=== PATIENT | male | born 1970 ===

== ENCOUNTER 2016-10-04 22:20 | Emergency (ER) | payer SELFPAY ==
[2016-10-04 22:52] VITALS: RESP 20
--- NOTE | 2016-10-04 23:04 | C.PDOC ---
History Of Present Illness Patient presents to ED with complaints of bilateral feet pain in relation to walking all day. Patient states he "needs a place to rest" because he is homeless. Time Seen by Provider: 10/04/16 23:04 Chief Complaint (Nursing): Lower Extremity Problem/Injury History Per: Patient History/Exam Limitations: no limitations Onset/Duration Of Symptoms: Days (one day) Current Symptoms Are (Timing): Still Present Severity: Mild Recent travel outside of the [place]: No Additional History Per: Patient - Ankle/Foot Description Of Injury: Other (Walking a lot) Past Medical History Reviewed: Historical Data, Nursing Documentation, Vital Signs Vital Signs: Last Vital Signs Temp 97.8 F 10/04/16 22:43 Pulse 96 H 10/04/16 22:43 Resp 20 10/04/16 22:43 BP 107/71 10/04/16 22:43 Pulse Ox 95 10/05/16 01:34 - Medical History PMH: Diabetes, HTN, Kidney Stones Family History: States: No Known Family Hx - Social History Hx Tobacco Use: No Hx Alcohol Use: Yes Hx Substance Use: No - Immunization History Hx Tetanus Toxoid Vaccination: Yes Hx Influenza Vaccination: Yes Hx Pneumococcal Vaccination: No Review Of Systems Constitutional: Negative for: Fever, Chills Musculoskeletal: Positive for: Foot Pain (Bilateral feet pain). Negative for: Leg Pain Skin: Negative for: Rash, Lesions Physical Exam - Physical Exam Appears: Non-toxic Skin: Warm Eye(s): bilateral: Normal Inspection Oral Mucosa: Moist Neck: Supple Extremity: Capillary Refill (< 2 seconds), Other (Some callusus on feet) Neurological/Psych: Oriented x3, Normal Speech, Normal Cognition Gait: Steady ED Course And Treatment O2 Sat by Pulse Oximetry: 95 (Room air ) Pulse Ox Interpretation: Normal Reevaluation Time: 06:00 Reassessment Condition: Improved Disposition Counseled Patient/Family Regarding: Studies Performed, Diagnosis, Need For Followup - Disposition Referrals: [facility] [Outside] Disposition: HOME/ ROUTINE Disposition Time: 23:04 Condition: FAIR Instructions: Arthralgia (ED) - Clinical Impression Clinical Impression: Leg pain - 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 - Scribe Statement The provider has reviewed the documentation as recorded by the Margaretibpriscilla Cole All medical record entries made by the Scribe were at my direction and personally dictated by me. I have reviewed the chart and agree that the record accurately reflects my personal performance of the history, physical exam, medical decision making, and the department course for this patient. I have also personally directed, reviewed, and agree with the discharge instructions and disposition.
[2016-10-05 06:51] VITALS: BP 137/80; PULSE 80; TEMP 98; O2SAT 97
== END 2016-10-05 06:46 | disposition home or self-care (01) ==
LOC: C.ER 22:20
DX: M79.672 Pain in left foot (principal); M79.671 Pain in right foot; Z59.0 Homelessness

== ENCOUNTER 2016-10-05 18:56 | Observation (INO) | payer SELFPAY ==
[2016-10-05 19:04] VITALS: RESP 20; O2SAT 97
[2016-10-05] MEDS ORDERED: Naloxone 0.4 mg/ml Inj (Adult) IV ONE (19:58)
--- NOTE | 2016-10-05 19:58 | C.PDOC ---
History Of Present Illness 46 y/o male brought to ED by EMS after being found "drunk on street". Patient has alcohol odor in breath. Patient denies fever, chills, nausea/vomiting and diarrhea. No further complaints at this time. Time Seen by Provider: 10/05/16 19:36 Chief Complaint (Nursing): Substance Abuse History Per: Patient History/Exam Limitations: no limitations Onset/Duration Of Symptoms: Days Current Symptoms Are (Timing): Still Present Modifying Factor(s): Alcohol Severity: Mild Recent travel outside of the [place]: No Additional History Per: EMS Past Medical History Reviewed: Historical Data, Nursing Documentation, Vital Signs Vital Signs: Last Vital Signs Temp 97.4 F L 10/05/16 19:04 Pulse 89 10/05/16 19:04 Resp 20 10/05/16 19:04 BP 133/74 10/05/16 19:04 Pulse Ox 97 10/06/16 00:21 - Medical History PMH: Diabetes, HTN, Kidney Stones Family History: States: Unknown Family Hx - Social History Hx Tobacco Use: No Hx Alcohol Use: Yes Hx Substance Use: No - Immunization History Hx Tetanus Toxoid Vaccination: Yes Hx Influenza Vaccination: Yes Hx Pneumococcal Vaccination: No Review Of Systems Except As Marked, All Systems Reviewed And Found Negative. Constitutional: Negative for: Fever, Chills Gastrointestinal: Negative for: Nausea, Vomiting, Diarrhea Neurological: Negative for: Change in Speech Physical Exam - Physical Exam Appears: Non-toxic Skin: Warm, Dry Head: Atraumatic, Normacephalic Eye(s): bilateral: Normal Inspection Cardiovascular: Rhythm Regular Respiratory: Normal Breath Sounds, No Rales, No Rhonchi, No Wheezing Gastrointestinal/Abdominal: No Tenderness, No Guarding, No Rebound Neurological/Psych: Oriented x3, Normal Speech, Normal Cognition ED Course And Treatment - Laboratory Results Result Diagrams: 10/05/16 20:06 10/05/16 20:06 Lab Interpretation: Abnormal (etoh 346 H, tox + cocaine, opiates) O2 Sat by Pulse Oximetry: 97 Reevaluation Time: 00:42 Reassessment Condition: Improved Medical Decision Making Medical Decision Making: Plan: labs, Narcan homeless, etoh and heroine and cocaine abuse Disposition Doctor Will See Patient In The: Office - Disposition Disposition Time: 01:00 Condition: GOOD - Clinical Impression Clinical Impression: Alcohol intoxication, Heroin abuse - 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 - Scribe Statement The provider has reviewed the documentation as recorded by the Margaretibpriscilla Cole All medical record entries made by the Nasim were at my direction and personally dictated by me. I have reviewed the chart and agree that the record accurately reflects my personal performance of the history, physical exam, medical decision making, and the department course for this patient. I have also personally directed, reviewed, and agree with the discharge instructions and disposition. Physician Patient Turnover Patient Signed Over To: Thierno Lund Handoff Comments: dispo in AM when sober
[2016-10-05 20:12] LABS: BASO % 0.5 % (0.0-2.0); EOS # 0.1 K/uL (0.0-0.7); HEMATOCRIT 42.9 % (35.0-51.0); LYMPH # 1.8 K/uL (1.0-4.3); LYMPH % 26.4 % (20.0-40.0); MEAN CELL VOLUME 95.5 fL (80.0-94.0); MEAN CORPUSCULAR HEMOGLOBIN 32.2 pg (27.0-31.0); MEAN CORPUSCULAR HGB CONC 33.8 g/dL (33.0-37.0); MEAN PLATELET VOLUME 7.3 fL (7.2-11.7); MONO # 0.5 K/uL (0.0-0.8); MONO % 6.7 % (0.0-10.0); RED CELL DISTRIBUTION WIDTH 13.7 % (11.5-14.5)
[2016-10-05 20:14] LABS: URINE BACTERIA RARE (<OCC); URINE BILIRUBIN NEGATIVE (NEGATIVE); URINE BLOOD 3+ (NEGATIVE); URINE COLOR Colorless (YELLOW); URINE GLUCOSE (UA) NORMAL (Normal); URINE KETONE NEGATIVE (NEGATIVE); URINE PROTEIN NEGATIVE (NEGATIVE); URINE UROBILINOGEN NORMAL mg/dL (0.2-1.0); WBC URINE < 1 /hpf (0-5)
[2016-10-05 20:19] LABS: CHLORIDE 104 mmol/L (98-107); POTASSIUM 3.2 mmol/L (3.6-5.2); SODIUM 145 mmol/L (132-148)
[2016-10-05 20:21] LABS: GFR AFRICAN-AMERICAN > 60
[2016-10-05 20:22] LABS: ALB/GLOB RATIO 1.5 (1.0-2.1); ALKALINE PHOSPHATASE 84 U/L (38-126); ALT/SGPT 22 U/L (21-72); AST/SGOT 35 U/L (17-59); BILIRUBIN,TOTAL 0.2 mg/dL (0.2-1.3); BLOOD UREA NITROGEN 16 mg/dL (9-20); CALCIUM 8.8 mg/dl (8.6-10.4); CARBON DIOXIDE 24 mmol/L (22-30); GLUCOSE,RANDOM 100 mg/dL (75-110); TOTAL PROTEIN 7.1 g/dL (6.3-8.3)
[2016-10-05 20:31] LABS: URINE LEUKOCYTE ESTERASE NEGATIVE Leu/uL (Negative)
[2016-10-05 20:43] LABS: ALCOHOL SERUM 346 mg/dl (0-10)
[2016-10-06 06:52] VITALS: BP 118/76; PULSE 78; TEMP 98
== END 2016-10-06 06:49 | disposition home or self-care (01) ==
LOC: C.ER 18:56 → C.9OBSV 21:16
PROVIDERS: ADMIT Internal Medicine; ATTEND Internal Medicine
DX: F10.129 Alcohol abuse with intoxication, unspecified (principal); F14.10 Cocaine abuse, uncomplicated; Y90.8 Blood alcohol level of 240 mg/100 ml or more; F11.10 Opioid abuse, uncomplicated; E11.9 Type 2 diabetes mellitus without complications; I10 Essential (primary) hypertension; Z87.442 Personal history of urinary calculi; Z59.0 Homelessness
CPT/HCPCS: 80053; 81001; 85025; 99283; G0378; G0480